=== PATIENT | female | born 1950 | race Caucasian/White ===

== ENCOUNTER 2022-09-16 13:01 | Outpatient (CLI) | payer MEDICARE, BC, SELFPAY | END 2022-09-16 13:02 | disposition home or self-care (01) | PROVIDERS: PCP Family Medicine; Visit Provider Podiatrist | DX: I73.9 Peripheral vascular disease, unspecified (principal) | CPT/HCPCS: 93922 ==

== ENCOUNTER 2022-10-08 14:45 | Outpatient (CLI) | payer MEDICARE, BC, SELFPAY | END 2022-10-08 14:46 | disposition home or self-care (01) | LOC: WOUND 14:46 | PROVIDERS: PCP Family Medicine; Visit Provider Nurse Practitioner Family | DX: E11.622 Type 2 diabetes mellitus with other skin ulcer (principal); L89.893 Pressure ulcer of other site, stage 3; Z79.4 Long term (current) use of insulin; Z79.84 Long term (current) use of oral hypoglycemic drugs | CPT/HCPCS: 11042; 99213 ==

== ENCOUNTER 2022-10-15 13:04 | Outpatient (CLI) | payer MEDICARE, BC, SELFPAY | END 2022-10-15 13:05 | disposition home or self-care (01) | LOC: WOUND 13:04 | PROVIDERS: PCP Family Medicine; Visit Provider Nurse Practitioner Family | DX: E11.622 Type 2 diabetes mellitus with other skin ulcer (principal); L89.893 Pressure ulcer of other site, stage 3; Z79.4 Long term (current) use of insulin; Z79.84 Long term (current) use of oral hypoglycemic drugs | CPT/HCPCS: 11042 ==

== ENCOUNTER 2022-10-22 12:57 | Outpatient (CLI) | payer MEDICARE, BC, SELFPAY | END 2022-10-22 12:58 | disposition home or self-care (01) | LOC: WOUND 12:57 | PROVIDERS: PCP Family Medicine; Visit Provider Nurse Practitioner Family | DX: E11.622 Type 2 diabetes mellitus with other skin ulcer (principal); L89.893 Pressure ulcer of other site, stage 3; Z79.4 Long term (current) use of insulin; Z79.84 Long term (current) use of oral hypoglycemic drugs; E66.01 Morbid (severe) obesity due to excess calories; Z68.44 Body mass index [BMI] 60.0-69.9, adult | CPT/HCPCS: 99213 ==

== ENCOUNTER 2022-10-29 12:54 | Outpatient (CLI) | payer MEDICARE, BC, SELFPAY | END 2022-10-29 12:55 | disposition home or self-care (01) | LOC: WOUND 12:55 | PROVIDERS: PCP Family Medicine; Visit Provider Nurse Practitioner Family | DX: E11.622 Type 2 diabetes mellitus with other skin ulcer (principal); L89.893 Pressure ulcer of other site, stage 3; B37.2 Candidiasis of skin and nail; E66.01 Morbid (severe) obesity due to excess calories; Z68.44 Body mass index [BMI] 60.0-69.9, adult; Z79.4 Long term (current) use of insulin; Z79.84 Long term (current) use of oral hypoglycemic drugs | CPT/HCPCS: 99213 ==

== ENCOUNTER 2024-04-01 12:50 | Outpatient (CLI) | payer MEDICARE, BC, SELFPAY ==
[2024-04-01 15:27] LABS: Basophils Absolute Auto 0.06 K/uL (0.00-0.30); Basophils Percent Auto 0.8 % (0.0-3.0); Eosinophils Percent Auto 2.6 % (0.0-7.0); Hematocrit 35.9 % (33.0-51.0); Hemoglobin* 10.5 gm/dL (12.0-16.0); Immature Granulocytes Abs Auto 0.09 K/uL (0.00-0.30); Immature Granulocytes Pct Auto 1.2 %; Lymphocytes Percent Auto 9.9 % (20-44); Mean Corpuscular HGB Conc 29 gm/dL (32-36); Mean Corpuscular Hemoglobin 26 pg (26-34); Mean Corpuscular Volume 90 fL (80-100); Monocytes Percent Auto 8.8 % (0.0-11.0); Neutrophils Percent Auto 76.7 % (42.0-72.0); Platelet Count* 190 K/uL (140-440); RDW Coefficient of Variation % 18.5 % (11.5-15.5); Red Blood Count 3.98 m/uL (4.00-5.20); White Blood Count* 7.76 K/uL (4.50-11.00)
[2024-04-01 15:39] LABS: Slide Review Reflex No
[2024-04-01 15:42] LABS: Albumin* 4.4 g/dL (3.3-5.0); Chloride* 97 mmol/L (96-114); Sodium* 135 mmol/L (135-149)
[2024-04-01 15:43] LABS: Potassium* 4.3 mmol/L (3.6-5.1)
[2024-04-01 15:45] LABS: Alkaline Phosphatase* 84 U/L (40-150); Anion Gap 5 mEq/L (7-15); Aspartate Amino Transferase* 42 U/L (12-35); Bilirubin Total* 0.4 mg/dL (0.1-1.5); Blood Urea Nitrogen* 36 mg/dL (7-30); Carbon Dioxide* 33 mmol/L (20-32); Creatinine* 1.3 mg/dL (0.5-1.5); Estimated Glomerular Filt Rate 44 ml/min; Total Protein* 7.5 g/dL (6.0-8.3)
[2024-04-01 15:46] LABS: Alanine Aminotransferase* 37 U/L (4-35); Calcium* 9.4 mg/dL (8.4-10.6); Glucose* 125 mg/dL (60-115)
[2024-04-01 15:48] LABS: C Reactive Protein* 1.5 mg/dL (0.5-1.0)
[2024-04-01 17:47] LABS: Erythrocyte SedimentationRate* 7 mm/hr (2-20)
[2024-04-03 23:48] LABS: Prealbumin 15.4 mg/dL (20.0-40.0)
== END 2024-04-01 12:51 | disposition home or self-care (01) ==
LOC: WOUND 12:51
PROVIDERS: PCP Family Medicine; Visit Provider Nurse Practitioner Family
DX: E11.621 Type 2 diabetes mellitus with foot ulcer (principal); L97.512 Non-pressure chronic ulcer of other part of right foot with fat layer exposed; E11.622 Type 2 diabetes mellitus with other skin ulcer; L97.812 Non-pressure chronic ulcer of other part of right lower leg with fat layer exposed; Z79.4 Long term (current) use of insulin; Z79.84 Long term (current) use of oral hypoglycemic drugs
CPT/HCPCS: 11042; 36415; 80053; 84134; 85025; 85651; 86140; 87070; 87186; G0463

== ENCOUNTER 2024-04-08 07:58 | Outpatient (CLI) | payer MEDICARE, BC, SELFPAY | END 2024-04-08 07:59 | disposition home or self-care (01) | LOC: WOUND 07:59 | PROVIDERS: PCP Family Medicine; Visit Provider Nurse Practitioner Family | DX: E11.621 Type 2 diabetes mellitus with foot ulcer (principal); L97.512 Non-pressure chronic ulcer of other part of right foot with fat layer exposed; L97.412 Non-pressure chronic ulcer of right heel and midfoot with fat layer exposed; E11.622 Type 2 diabetes mellitus with other skin ulcer; L97.812 Non-pressure chronic ulcer of other part of right lower leg with fat layer exposed; Z79.4 Long term (current) use of insulin | CPT/HCPCS: 11042; 97597 ==

== ENCOUNTER 2024-04-15 07:53 | Outpatient (CLI) | payer MEDICARE, BC, SELFPAY | END 2024-04-15 07:54 | disposition home or self-care (01) | LOC: WOUND 07:53 | PROVIDERS: PCP Family Medicine; Visit Provider Nurse Practitioner Family | DX: E11.621 Type 2 diabetes mellitus with foot ulcer (principal); L97.512 Non-pressure chronic ulcer of other part of right foot with fat layer exposed; E11.622 Type 2 diabetes mellitus with other skin ulcer; L97.811 Non-pressure chronic ulcer of other part of right lower leg limited to breakdown of skin; I89.0 Lymphedema, not elsewhere classified; Z79.4 Long term (current) use of insulin; Z79.84 Long term (current) use of oral hypoglycemic drugs | CPT/HCPCS: 11042; 97597 ==

== ENCOUNTER 2024-04-15 09:20 | Emergency (ER) | payer MEDICARE, BC, SELFPAY ==
[2024-04-15 09:46] VITALS: BP 98/40; PULSE 73; RESP 24; TEMP 36.6; O2SAT 91
[2024-04-15 10:03] VITALS: BP 124/108; O2SAT 84
[2024-04-15 10:11] VITALS: BP 120/88
[2024-04-15 10:23] VITALS: PULSE 68; O2SAT 94
--- NOTE | 2024-04-15 10:31 | CRLHL7_ITS ---
For Patients: As a result of the Cures Act, medical imaging exams and procedure reports are released immediately into your electronic medical record. You may view this report before your referring provider. If you have questions, please contact your health care provider. INDICATION: Cough. TECHNIQUE: AP and lateral chest radiographs three views. COMPARISON: None. FINDINGS: No pneumothorax or pleural effusion. Mild bibasilar scarring or atelectasis. Lungs are otherwise clear. Enlargement of the cardiac silhouette. No evidence of pulmonary edema. Upper abdomen and osseous structures as imaged show no acute abnormality. Apparent bone demineralization. Degenerative changes of the spine and shoulders. IMPRESSION: No evidence of acute cardiopulmonary disease. Dictated by Murali Gilmore MD @ 04/15/2024 11:47:17 AM (Electronically Signed)
--- NOTE | 2024-04-15 10:31 | CRLHL7_ITS ---
For Patients: As a result of the Cures Act, medical imaging exams and procedure reports are released immediately into your electronic medical record. You may view this report before your referring provider. If you have questions, please contact your health care provider. INDICATION: Fall. Pain. TECHNIQUE: Left shoulder three views. COMPARISON: None. FINDINGS: No acute fracture or dislocation. Degenerative changes of the acromioclavicular and glenohumeral joints. Soft tissues as imaged are unremarkable. IMPRESSION: No acute osseous abnormality. Dictated by Murali Gilmore MD @ 04/15/2024 11:48:31 AM (Electronically Signed)
--- NOTE | 2024-04-15 11:36 | ED_ITS ---
HPI - General Adult General Date Seen: 04/15/24 Chief complaint: Hypotension Stated complaint: Low bp, sent from wound care Time Seen by Provider: 04/15/24 09:44 Source: patient and family Mode of arrival: wheelchair Limitations: no limitations History of Present Illness HPI narrative: Patient is a 73-year-old morbidly obese lady who presents here after she had an episode of hypotension down in wound care, her pressures there reportedly 80 systolic, I do have documentation of 1 of her pressures down there was 115 systolic, and her pressures have been good well she has been here, with the lowest being 98/40. She is here with her son, he tells me that she just had some of her medications adjusted by her primary care physician and they increased and a diuretic. She felt a little bit dizzy down there, but otherwise feels fine here. She notes that she did roll over in her bed last night and bruise her left arm. And she has also had a slight cough for the last week or so. Denies any fevers chills or sweats, she is eating and drinking normally, lives independently. Treatments prior to arrival: none Related Data Home Medications ?Medication ?Instructions ?Recorded ?Confirmed albuterol sulfate 2.5 mg/3 mL 1 3XD 04/15/24 (0.083 %) solution for nebulization aripiprazole 15 mg tablet 15 mg PO DAILY 04/15/24 04/15/24 bumetanide 1 mg tablet 1 mg PO BID 04/15/24 04/15/24 bumetanide 2 mg tablet 2 mg PO DAILY PRN edema 04/15/24 04/15/24 buspirone 15 mg tablet 15 mg PO BID 04/15/24 04/15/24 chlorthalidone 25 mg tablet 25 mg PO DAILY 04/15/24 04/15/24 clonazepam 1 mg tablet 1 mg PO QPM 04/15/24 04/15/24 clopidogrel 75 mg tablet 75 mg PO DAILY 04/15/24 04/15/24 diltiazem HCl 360 mg capsule,24 360 mg PO DAILY 04/15/24 04/15/24 hr,extended release fluticasone fur. 100 mcg-umeclid 1 ea inhalation DAILY 04/15/24 04/15/24 62.5 mcg-vilant 25 mcg inhalat.powder (Trelegy Ellipta) gabapentin 300 mg capsule mg PO 04/15/24 insulin glargine 100 unit/mL (3 75 unit subcut BID 04/15/24 04/15/24 mL) subcutaneous pen (Lantus Solostar U-100 Insulin) levothyroxine 137 mcg tablet 137 mcg PO DAILY 04/15/24 04/15/24 pantoprazole 40 mg tablet,delayed 40 mg PO BID 04/15/24 04/15/24 release penicillin V potassium 500 mg 500 mg PO 3XD 04/15/24 04/15/24 tablet rosuvastatin 5 mg tablet 5 mg PO DAILY 04/15/24 04/15/24 semaglutide 1 mg/dose (4 mg/3 mL) 1 mg subcut 04/15/24 subcutaneous pen injector (Ozempic) sitagliptin phosphate 25 mg tablet 25 mg PO DAILY 04/15/24 04/15/24 (Januvia) tolterodine 4 mg capsule,extended 4 mg PO DAILY 04/15/24 04/15/24 release 24 hr torsemide 20 mg tablet 20 mg PO DAILY 04/15/24 04/15/24 valsartan 160 mg tablet 160 mg PO DAILY 04/15/24 04/15/24 Allergies Allergy/AdvReac Type Severity Reaction Status Date / Time atorvastatin Allergy Unknown Unverified 09/23/23 09:21 cholestyramine Allergy Unknown Unverified 09/23/23 09:21 methylphenidate Allergy Unknown Unverified 09/23/23 09:21 Penicillins Allergy Unknown Unverified 09/23/23 09:21 Augmentin Allergy Unknown Uncoded 09/23/23 09:21 Review of Systems Status of ROS: Reports: 10 or more systems reviewed and unremarkable except as noted in History and below [facility] Social History Non-prescribed substance use: denies use Exam Narrative: Exam Narrative: I see her in room 5 she is in no apparent distress, she was initially on the commode sided come back and see her after that. Her pupils equal round reactive to light her neck arm oropharynx is normal her neck is supple, can see a JVP due to the size of her neck her chest is good air entry bilaterally with occasional wheezes, she tells me she does not use her nebulizer. Heart sounds are normal, no clicks murmurs or gallops, her abdomen is obese, with bruising secondary to injections of insulin over the abdomen. She moves her lower extremities normally she has wraps on her lower extremities bilaterally which they checked today and wound care. Const: Vital Signs, click to edit/add: Vital Signs - 24 hr 04/15/24 09:35 04/15/24 09:46 04/15/24 10:03 Temperature 97.9 F Pulse Rate Pulse Rate [Pulse Oximeter] 73 Respiratory Rate 24 Blood Pressure 124/108 H Blood Pressure [Ri ght Upper Arm] 98/40 L Pulse Oximetry 91 84 L Oxygen Delivery Me thod Nasal Cannula Nasal Cannula Oxygen Flow Rate 2 2 04/15/24 10:11 04/15/24 10:23 Temperature Pulse Rate 68 Pulse Rate [Pulse Oximeter] Respiratory Rate Blood Pressure 120/88 Blood Pressure [Ri ght Upper Arm] Pulse Oximetry 94 Oxygen Delivery Me thod Oxygen Flow Rate Course Course ED Course: Chaitanya carrillo is a been reasonable, she has no symptoms of UTI and does not want her urine tested at this point. I talked to her son who works here at the hospital, he would like to take her home, her chest x-ray and also arm x-ray are negative I think this is reasonable. She will follow up with her regular physician for further evaluation and treatment, Vital Signs Vital signs: Initial Vital Signs Oxygen Delivery Method Nasal Cannula 04/15/24 09:35 Oxygen Flow Rate 2 04/15/24 09:35 Vital Signs Oxygen Delivery Method Nasal Cannula 04/15/24 09:35 Oxygen Flow Rate 2 04/15/24 09:35 Temperature 97.9 F 04/15/24 09:46 Pulse Rate 68 04/15/24 10:23 Respiratory Rate 24 04/15/24 09:46 Blood Pressure 120/88 04/15/24 10:11 Pulse Oximetry 94 04/15/24 10:23 Oxygen Delivery Method Nasal Cannula 04/15/24 09:46 Oxygen Flow Rate 2 04/15/24 09:46 Medical Decision Making [facility] Narrative Medical decision making narrative: Life-threatening differential diagnosis considered include stroke, coronary artery disease, pneumonia, and heart failure. Other differential diagnosis include but are not limited to electrolyte imbalances, anemia, medication ginny ctions, and urinary tract infection I will do a chest x-ray, left shoulder x-ray and a COVID swab, her pressures seem okay here I do not think this is sepsis based on what it is her arms are so large that I think there was just an error in doing the blood pressure. As they have normalized now and she does not tachycardic Medical Records Medical records reviewed: Yes I reviewed the patient's medical records Lab Data Labs: Lab Results 04/15/24 Range/Units 10:39 SARS-CoV-2 (PCR) Negative SARS-CoV-2 (Negative) Influenza Type A (PCR) Negative PCR FLU A (Negative) Influenza Type B (PCR) Negative PCR FLU B (Negative) RSV (PCR) Negative PCR RSV (Negative) Discharge Plan Discharge Clinical Impression: Hypotension, Fall, Hematoma, Cough Patient Disposition: Home w/ Parent or Adult Condition: Stable Instructions: Fall Prevention for Older Adults (ED), Hypotension (DC), Fall Prevention (ED), Bone Bruise (ED) Additional Instructions: Home rest follow-up with primary care to get her blood pressure check, and to make sure your diuretic doses adequate. Consider follow-up with the lymphedema specialist. Return as needed Prescriptions: No Action levothyroxine 137 mcg tablet 137 mcg PO DAILY torsemide 20 mg tablet 20 mg PO DAILY bumetanide 2 mg tablet 2 mg PO DAILY PRN (Reason: edema) albuterol sulfate 2.5 mg /3 mL (0.083 %) solution for nebulization 1 3XD tolterodine 4 mg capsule,extended release 24hr 4 mg PO DAILY clonazepam 1 mg tablet 1 mg PO QPM penicillin V potassium 500 mg tablet 500 mg PO 3XD diltiazem HCl 360 mg capsule,extended release 24 hr 360 mg PO DAILY clopidogrel 75 mg tablet 75 mg PO DAILY chlorthalidone 25 mg tablet 25 mg PO DAILY pantoprazole 40 mg tablet,delayed release (DR/EC) 40 mg PO BID gabapentin 300 mg capsule PO bumetanide 1 mg tablet 1 mg PO BID buspirone 15 mg tablet 15 mg PO BID valsartan 160 mg tablet 160 mg PO DAILY aripiprazole 15 mg tablet 15 mg PO DAILY rosuvastatin 5 mg tablet 5 mg PO DAILY Januvia 25 mg tablet 25 mg PO DAILY insulin glargine [Lantus Solostar U-100 Insulin] 100 unit/mL (3 mL) insulin pen 75 unit subcut BID Trelegy Ellipta 100-62.5-25 mcg blister with device 1 ea INHALATION DAILY Ozempic 1 mg/dose (4 mg/3 mL) pen injector 1 mg subcut Follow Up/Referrals: Ludwig Pritchard MD [Primary Care Provider] - Stand Alone Forms: [employer] Info Instructions
[2024-04-15 11:46] LABS: PCR FLU A Negative PCR FLU A (Negative); PCR FLU B Negative PCR FLU B (Negative); PCR RSV Negative PCR RSV (Negative); SARS PCR* Negative SARS-CoV-2 (Negative)
== END 2024-04-15 12:43 | disposition home or self-care (01) ==
PROVIDERS: Emergency Provider Family Medicine; PCP Family Medicine
DX: I95.9 Hypotension, unspecified (principal); R05.9 Cough, unspecified; S40.022A Contusion of left upper arm, initial encounter; W19.XXXA Unspecified fall, initial encounter
CPT/HCPCS: 11042; 71046; 73030; 87631; 97597; 99284

== ENCOUNTER 2024-04-22 07:50 | Outpatient (CLI) | payer MEDICARE, BC, SELFPAY | END 2024-04-22 07:51 | disposition home or self-care (01) | LOC: WOUND 07:50 | PROVIDERS: PCP Family Medicine; Visit Provider Nurse Practitioner Family | DX: E11.621 Type 2 diabetes mellitus with foot ulcer (principal); L97.512 Non-pressure chronic ulcer of other part of right foot with fat layer exposed; L97.412 Non-pressure chronic ulcer of right heel and midfoot with fat layer exposed; E11.622 Type 2 diabetes mellitus with other skin ulcer; L97.811 Non-pressure chronic ulcer of other part of right lower leg limited to breakdown of skin; L89.323 Pressure ulcer of left buttock, stage 3; Z79.4 Long term (current) use of insulin; Z79.84 Long term (current) use of oral hypoglycemic drugs | CPT/HCPCS: 11042; 97597; G0463 ==

== ENCOUNTER 2024-07-12 13:57 | Outpatient (CLI) | payer MEDICARE, BC, SELFPAY | END 2024-07-12 13:58 | disposition home or self-care (01) | LOC: WOUND 13:58 | PROVIDERS: PCP Family Medicine; Visit Provider Family Medicine | DX: L89.312 Pressure ulcer of right buttock, stage 2 (principal); L89.323 Pressure ulcer of left buttock, stage 3; E11.42 Type 2 diabetes mellitus with diabetic polyneuropathy; Z79.4 Long term (current) use of insulin; E66.01 Morbid (severe) obesity due to excess calories; Z79.84 Long term (current) use of oral hypoglycemic drugs; Z68.44 Body mass index [BMI] 60.0-69.9, adult | CPT/HCPCS: G0463 ==

== ENCOUNTER 2024-07-19 14:11 | Outpatient (CLI) | payer MEDICARE, BC, SELFPAY | END 2024-07-19 14:12 | disposition home or self-care (01) | LOC: WOUND 14:11 | PROVIDERS: PCP Family Medicine; Visit Provider Nurse Practitioner Family | DX: E11.42 Type 2 diabetes mellitus with diabetic polyneuropathy (principal); L30.4 Erythema intertrigo; E66.01 Morbid (severe) obesity due to excess calories; Z68.44 Body mass index [BMI] 60.0-69.9, adult; Z79.4 Long term (current) use of insulin; Z79.84 Long term (current) use of oral hypoglycemic drugs | CPT/HCPCS: 97602; G0463 ==

== ENCOUNTER 2024-07-26 13:56 | Outpatient (CLI) | payer MEDICARE, BC, SELFPAY | END 2024-07-26 13:57 | disposition home or self-care (01) | LOC: WOUND 13:56 | PROVIDERS: PCP Family Medicine; Visit Provider Nurse Practitioner Family | DX: L30.4 Erythema intertrigo (principal); E11.42 Type 2 diabetes mellitus with diabetic polyneuropathy; E66.01 Morbid (severe) obesity due to excess calories; Z79.4 Long term (current) use of insulin | CPT/HCPCS: 97602; G0463 ==

== ENCOUNTER 2024-08-09 14:25 | Outpatient (CLI) | payer MEDICARE, BC, SELFPAY | END 2024-08-09 14:26 | disposition home or self-care (01) | LOC: WOUND 14:25 | PROVIDERS: PCP Family Medicine; Visit Provider Nurse Practitioner Family | DX: L30.4 Erythema intertrigo (principal); E11.42 Type 2 diabetes mellitus with diabetic polyneuropathy; E66.01 Morbid (severe) obesity due to excess calories; Z68.44 Body mass index [BMI] 60.0-69.9, adult; Z79.4 Long term (current) use of insulin | CPT/HCPCS: 97597 ==